=== PATIENT | female | born 1985 | race American Indian/Alaskan Native ===

== ENCOUNTER 2018-02-12 12:48 | Emergency (ER) | payer BC ==
[2018-02-12 12:51] VITALS: BMI 38.8
--- NOTE | 2018-02-12 13:36 | ED PDOC ---
Arrival/HPI - General Chief Complaint: Rib Injury Time Seen by Provider: 02/12/18 13:00 Historian: Patient - History of Present Illness Narrative History of Present Illness (Text): 33F w/ no significant PMH presenting to the ED for right sided rib pain. She reports feeling progressive worsening of her right sided rib pain, exacerbated by deep inspiration and direct palpation. The patient reports the onset of pain 3 days ago. She denies taking any medications for her pain. She reports going to an Urgent Care Center today and had CXR which revealed 3 right sided rib fractures and was advised to present to the ED for further evaluation. The patient denies any trauma, coughing spells, palpitation, syncopal episodes, abdominal pain, back pain or weakness. PCP: None Time/Duration: Other (3 days) Symptom Onset: Gradual Symptom Course: Worsening Quality: Stabbing Severity Level: 7 Activities at Onset: Rest Context: Home Past Medical History - Provider Review Nursing Documentation Reviewed: Yes - Travel History Have you recently traveled outside [place] w/in the past 3 mons?: No - Genitourinary/Gynecological Hx Genitourinary Disorders: Yes (IUD) - Psychiatric Hx Substance Use: No Family/Social History - Physician Review Nursing Documentation Reviewed: Yes Family/Social History: Unknown Family HX Smoking Status: Never Smoked Hx Alcohol Use: No Hx Substance Use: No Allergies/Home Meds Allergies/Adverse Reactions: Allergies No Known Allergies Allergy (Verified 02/12/18 12:50) Review of Systems - Physician Review All systems were reviewed & negative as marked: Yes - Review of Systems Respiratory: absent: SOB, Cough Cardiovascular: Chest Pain. absent: Palpitations, Edema Physical Exam Vital Signs Reviewed: Yes Vital Signs Temp Pulse Resp BP Pulse Ox 02/12/18 19:30 98.2 F 82 18 127/78 100 Temperature: Afebrile Blood Pressure: Normal Pulse: Regular Respiratory Rate: Normal Appearance: Positive for: Well-Appearing, Non-Toxic, Comfortable Pain Distress: Moderate Mental Status: Positive for: Alert and Oriented X 3 - Systems Exam Head: Present: Atraumatic, Normocephalic Respiratory/Chest: Present: Clear to Auscultation, Good Air Exchange. No: Respiratory Distress, Accessory Muscle Use, Wheezes, Decreased Breath Sounds Cardiovascular: Present: Regular Rate and Rhythm, Normal S1, S2 Abdomen: Present: Normal Bowel Sounds. No: Tenderness, Distention, Peritoneal Signs Back: Present: Normal Inspection. No: Midline Tenderness, Paraspinal Tenderness Neurological: Present: GCS=15, CN II-XII Intact, Speech Normal Skin: Present: Warm, Dry, Normal Color Psychiatric: Present: Alert, Oriented x 3, Normal Insight, Normal Concentration Medical Decision Making ED Course and Treatment: 02/12/18 13:54 Impression 33F w/ R sided chest wall pain suspicious for rib fracture Differential Diagnoses Include But are Not Limited To: Rib fracture PTX Pulmonary Contusion Plan --Labs --EKG --CXR --Toradol --Morphine -- Reassess & Disposition Progress Notes 02/12/18 15:28 Patient reassessed aand still feels pain despite analgesics. Will give Percocet and Lidoderm. 02/12/18 16:47 Reevaluation reveals improvement in pain with patient asleep on the bed. CXR does not comment on structure of ribs. XR ribs ordered. 02/14/18 18:00 XR rib series does not reveal overt rib fractures. Results discussed with patient with offer for CT imaging declined by patient. Shared decision making to postpone CT imaging and to continue supportive therapy at home with pain medications desired by patient. She does not desire to stay within the hospital. Scripts provided. 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 She demonstrates understanding of the plan and will follow up. She is stable for discharge. Re-evaluation Time: 16:47 Reassessment Condition: Re-examined, Improving,but remains with symptoms - Lab Interpretations Lab Results: 02/12/18 13:49 Lab Results 02/12/18 13:49: Sodium 141, Potassium 4.2, Chloride 102, Carbon Dioxide 30, Anion Gap 13, BUN 11, Creatinine 0.6 L, Est GFR ( Amer) > 60, Est GFR ( Non-Af Amer) > 60, Random Glucose 89, Calcium 9.0, Total Bilirubin 0.5, AST 22, ALT 23, Alkaline Phosphatase 73, Troponin I < 0.01, Total Protein 7.8, Albumin 4.2, Globulin 3.5, Albumin/Globulin Ratio 1.2 - RAD Interpretation Radiology Orders: 02/12/18 13:02 CHEST PORTABLE [RAD] Stat 02/12/18 16:44 RIBS RIGHT [RAD] Stat - Medication Orders Current Medication Orders: Discontinued Medications Ketorolac Tromethamine (Toradol) 60 mg IM STAT STA Stop: 02/12/18 13:04 Last Admin: 02/12/18 13:44 Dose: 60 mg MAR Pain Assessment Document 02/12/18 13:44 HI (Rec: 02/12/18 13:46 [place] [id number]) Pain Reassessment Is this a pain reassessment? No Sleep Is patient sleeping during reassessment? No Presence of Pain Presence of Pain Yes Location Left, Right or Bilateral Right Pain Location Body Site Shoulder Chest IM Administration Charges Document 02/12/18 13:44 HI (Rec: 02/12/18 13:46 [place] [id number]) Injection Site MAR Injection Site Left Gluteus Harjeet Charges for Administration # of IM Administrations 1 Lidocaine (Lidoderm) 1 ea TD ONCE ONE Stop: 02/12/18 14:30 Last Admin: 02/12/18 14:49 Dose: 1 ea MAR Transdermal Patch Site Document 02/12/18 14:49 HI (Rec: 02/12/18 14:49 [place] [id number]) Transdermal Patch Site Transdermal Patch Site Right Lower Back Oxycodone/Acetaminophen (Percocet 5/325 Mg Tab) 1 tab PO STAT STA Stop: 02/12/18 14:18 Last Admin: 02/12/18 14:48 Dose: 1 tab MAR Pain Assessment Document 02/12/18 14:48 HI (Rec: 02/12/18 14:48 [place] [id number]) Pain Reassessment Is this a pain reassessment? Yes Sleep Is patient sleeping during reassessment? No Presence of Pain Presence of Pain Yes Pain Scale Used Pain Scale Used Numeric Location Left, Right or Bilateral Right Pain Location Body Site Abdomen Description Intensity of Pain at present 7 Disposition/Present on Arrival - Present on Arrival Any Indicators Present on Arrival: No History of DVT/PE: No History of Uncontrolled Diabetes: No Urinary Catheter: No History of Decub. Ulcer: No History Surgical Site Infection Following: None - Disposition Have Diagnosis and Disposition been Completed?: No Diagnosis: Rib pain on right side Disposition: HOME/ ROUTINE Disposition Time: 18:37 Patient Plan: Discharge Condition: IMPROVED Discharge Instructions (ExitCare): Chest Pain (ED) Prescriptions: diaZEpam [Valium] 2 mg PO PRN PRN 3 Days #6 tab PRN Reason: Anxiety Ibuprofen [Motrin Tab] 800 mg PO Q6H PRN #24 tab PRN Reason: Pain, Moderate (4-7) Forms: [facility] (Portuguese), WORK NOTE
[2018-02-12 14:10] LABS: ALB/GLOB RATIO 1.2 (1.1-1.8); ALBUMIN 4.2 g/dL (3.0-4.8); ALT/SGPT 23 U/L (7-56); AST/SGOT 22 U/L (14-36); BLOOD UREA NITROGEN 11 mg/dL (7-21); GFR AFRICAN-AMERICAN > 60; GFR NON-AFRICAN AMERICAN > 60
[2018-02-12] MEDS ORDERED: Oxycodone/Acetaminophen 5/325 mg Tab PO STA (14:17)
[2018-02-12 14:22] LABS: TROPONIN I < 0.01 ng/mL
[2018-02-12] MEDS ORDERED: Lidocaine 5% Patch TD ONE (14:29)
--- NOTE | 2018-02-12 16:01 | RAD ---
Date of service: 02/12/2018 HISTORY: Chest pain w/ suspectd rib fx and r/o PTX COMPARISON: No prior. FINDINGS: LUNGS: The lungs are well inflated and clear. PLEURA: No significant pleural effusion identified, no pneumothorax apparent. CARDIOVASCULAR: Normal. OSSEOUS STRUCTURES: No significant abnormalities. VISUALIZED UPPER ABDOMEN: Normal. OTHER FINDINGS: None. IMPRESSION: No active pulmonary disease.
--- NOTE | 2018-02-12 18:53 | RAD ---
Date of service: 02/12/2018 PROCEDURE: Right rib series dated 02/20/2018. HISTORY: Rib fracture. . COMPARISON: Comparison made with earlier chest radiograph. . TECHNIQUE: Three views of the right ribs performed. FINDINGS: The at current study reveals no definitive radiographic evidence of acute displaced right-sided rib fracture. Osseous structures appear intact. If symptoms persist or occult fracture suspected clinically consider follow-up CT scan of the chest. IMPRESSION: No evidence of acute displaced right-sided rib fracture on. If symptoms persist or occult fracture suspected clinically recommend follow-up CT scan chest.
--- NOTE | 2018-02-12 19:29 | ED PDOC ---
ED Additional Note - Date & Time of Evaluation Date of Evaluation: 02/12/18 Time of Evaluation: 19:28 - Physician Additional Note Physician Additional Note: my involvement in this case is limited only to assist in facilitation of writing work note. as per dr. morris, patient can be have work note for 2 days.
[2018-02-12 20:05] VITALS: BP 127/78; PULSE 82; RESP 18; TEMP 98.2; O2SAT 100
--- NOTE | 2018-02-12 21:12 | CARD ---
APPROVED REPORT Date of service: 02/12/2018 EKG Measurement Heart [id number] <Conclusion> Normal sinus rhythm with sinus arrhythmia Normal ECG
== END 2018-02-12 19:30 | disposition home or self-care (01) ==
LOC: ED 12:48 → MERGE 12:48 → ED 19:30
DX: R07.81 Pleurodynia (principal)
CPT/HCPCS: 71045; 71100; 80053; 84484; 93005; 96372; 99284; J1885